=== PATIENT | female | born 1960 | race Two or more races ===

== ENCOUNTER 2017-03-17 10:53 | Emergency (ER) | payer OTHER ==
[~2017-03-17] VITALS: Ht 170.2 cm; Wt 108.9 kg
[~2017-03-17 10:53] MED LIST: BACTRIM DS TABL1 TAB PO; DEXAMETHASONE2 MG PO; INTESTINEX1 CA1 PO; LOTRISONE LOTIO30 ML TP; NORFLEX100MG PO; OMEPRAZOLE20 MG PO; PROTONIX40 MG PO; SEPTRA DS PO; TRAM1TAB98 PO; VASOTEC20 M1 PO; VOLTAREM 50 MG PO
== END 2017-03-17 13:49 | disposition home or self-care (01) ==
LOC: ER 10:53
DX: K29.60 Other gastritis without bleeding (principal); R10.31 Right lower quadrant pain

== ENCOUNTER → 2017-05-29 | Emergency (ER) | payer OTHER ==
[~2017-05-29] VITALS: Ht 170.2 cm; Wt 113.9 kg
== END | disposition home or self-care (01) ==
LOC: ER 14:18
DX: B34.9 Viral infection, unspecified (principal)

== ENCOUNTER 2017-11-08 11:58 | Emergency (ER) | payer OTHER ==
[~2017-11-08] VITALS: Ht 170.2 cm; Wt 112.0 kg
[2017-11-08] MEDS ORDERED: ZANTAC150 M3 (12:10)
[2017-11-08] MEDS ORDERED: LOSARTAN POTASS50 MG (12:10)
== END 2017-11-08 15:16 | disposition home or self-care (01) ==
LOC: ER 11:58
DX: M94.0 Chondrocostal junction syndrome [Tietze] (principal)

== ENCOUNTER 2018-03-10 10:51 | Emergency (ER) | payer OTHER ==
[~2018-03-10] VITALS: Ht 170.2 cm; Wt 116.6 kg
[~2018-03-10 10:51] MED LIST changes: +LOSARTAN POTASS50 MG; +ZANTAC150 M3
[2018-03-10] MEDS ORDERED: LINDANE60 M1 TOP (13:40)
[2018-03-10] MEDS ORDERED: BENADRYL25 MG PO (13:40)
== END 2018-03-10 13:56 | disposition home or self-care (01) ==
LOC: ER 10:51
DX: R21 Rash and other nonspecific skin eruption (principal)

== ENCOUNTER 2018-07-21 12:10 | Emergency (ER) | payer OTHER ==
[~2018-07-21] VITALS: Ht 170.2 cm; Wt 121.6 kg
[~2018-07-21 12:10] MED LIST changes: +BENADRYL25 MG PO; +LINDANE60 M1 TOP
== END 2018-07-21 18:09 | disposition home or self-care (01) ==
LOC: ER 12:10
DX: S83.8X2A Sprain of other specified parts of left knee, initial encounter (principal); M23.8X2 Other internal derangements of left knee; M25.562 Pain in left knee; X50.0XXA Overexertion from strenuous movement or load, initial encounter; Y93.89 Activity, other specified; Y92.89 Other specified places as the place of occurrence of the external cause; Y99.8 Other external cause status

== ENCOUNTER 2018-08-06 09:33 | Outpatient (CLI) | payer OTHER | END 2018-08-06 09:36 | disposition home or self-care (01) | LOC: MRI 09:33 | DX: S83.201A Bucket-handle tear of unspecified meniscus, current injury, left knee, initial encounter (principal) | CPT/HCPCS: 73721 ==

== ENCOUNTER 2019-08-31 11:21 | Outpatient (CLI) | payer OTHER | END 2019-08-31 11:25 | disposition home or self-care (01) | LOC: LAB 11:21 | PROVIDERS: ATTEND Radiology Diagnostic Radiology | DX: N20.0 Calculus of kidney (principal) ==

== ENCOUNTER 2019-09-07 07:29 | Outpatient (CLI) | payer OTHER | END 2019-09-07 08:21 | disposition home or self-care (01) | LOC: TOM 07:29 | PROVIDERS: ATTEND Internal Medicine Gastroenterology | DX: R10.13 Epigastric pain (principal); Z86.010 Personal history of colon polyps; K57.30 Diverticulosis of large intestine without perforation or abscess without bleeding; K21.9 Gastro-esophageal reflux disease without esophagitis; K62.5 Hemorrhage of anus and rectum | CPT/HCPCS: 74177; Q9965 ==

== ENCOUNTER 2019-09-10 09:53 | Emergency (ER) | payer OTHER ==
[~2019-09-10] VITALS: Ht 170.2 cm; Wt 117.0 kg
[2019-09-10] MEDS ORDERED: NAPROXEN SODIU550 MG PO (10:04)
== END 2019-09-10 15:40 | disposition home or self-care (01) ==
LOC: ER 09:53
DX: M94.0 Chondrocostal junction syndrome [Tietze] (principal); R07.89 Other chest pain

== ENCOUNTER 2020-07-31 09:20 | Emergency (ER) | payer OTHER ==
[~2020-07-31] VITALS: Ht 170.2 cm; Wt 117.9 kg
[~2020-07-31 09:20] MED LIST changes: +NAPROXEN SODIU550 MG PO
[2020-07-31] MEDS ORDERED: BUTALB-ASPIRIN1 EACH PO (11:30)
[2020-08-29] MEDS ORDERED: ACID REDUCER20 M1 PO (09:55)
[2020-08-29] MEDS ORDERED: HORIZANT300 MG PO (09:55)
[2020-08-29] MEDS ORDERED: [UNRECOGNIZED DRUG - OTHER] (09:56)
[2020-08-29] MEDS ORDERED: [UNRECOGNIZED DRUG - OTHER] PO (09:56)
== END 2020-07-31 11:49 | disposition home or self-care (01) ==
LOC: ER 09:20
DX: G44.209 Tension-type headache, unspecified, not intractable (principal)

== ENCOUNTER 2020-08-09 11:24 | Outpatient (CLI) | payer OTHER ==
[~2020-08-09 11:24] MED LIST changes: +BUTALB-ASPIRIN1 EACH PO
[2020-08-29] MEDS ORDERED: ACID REDUCER20 M1 PO (09:55)
[2020-08-29] MEDS ORDERED: HORIZANT300 MG PO (09:55)
[2020-08-29] MEDS ORDERED: [UNRECOGNIZED DRUG - OTHER] PO (09:56)
[2020-08-29] MEDS ORDERED: [UNRECOGNIZED DRUG - OTHER] (09:56)
== END 2020-08-09 11:34 | disposition home or self-care (01) ==
LOC: RAD 11:24
PROVIDERS: ATTEND Urology
DX: I11.0 Hypertensive heart disease with heart failure (principal); R07.89 Other chest pain

== ENCOUNTER 2020-09-05 10:26 | Day surgery (SDC) | payer OTHER ==
[~2020-09-05 10:26] MED LIST changes: +ACID REDUCER20 M1 PO; +HORIZANT300 MG PO; +[UNRECOGNIZED DRUG - OTHER]; +[UNRECOGNIZED DRUG - OTHER] PO
== END 2020-09-05 17:50 | disposition home or self-care (01) ==
LOC: CIR.AMB 10:26
PROVIDERS: ATTEND Urology
DX: N39.3 Stress incontinence (female) (male) (principal); Z20.822 Contact with and (suspected) exposure to COVID-19
CPT/HCPCS: 57288; C1771

== ENCOUNTER 2020-11-10 19:22 | Emergency (ER) | payer OTHER ==
[~2020-11-10] VITALS: Ht 170.2 cm; Wt 114.8 kg
[2020-11-10] MEDS ORDERED: ATORVASTATIN CA20 MG PO (20:00)
[2020-11-10] MEDS ORDERED: CYCLOBENZAPRINE10 MG PO (20:00)
[2020-11-10] MEDS ORDERED: METOPROLOL SUCC50 MG PO (20:00)
[2020-11-10] MEDS ORDERED: LOSARTAN POTAS100 MG PO (20:01)
[2020-11-10] MEDS ORDERED: IBUPROFEN800 MG PO (20:01)
== END 2020-11-11 | disposition home or self-care (01) ==
LOC: ER 19:22
DX: G50.0 Trigeminal neuralgia (principal); F06.4 Anxiety disorder due to known physiological condition

== ENCOUNTER 2020-12-05 16:59 | Emergency (ER) | payer OTHER ==
[~2020-12-05] VITALS: Ht 170.2 cm; Wt 116.6 kg
[~2020-12-05 16:59] MED LIST changes: +ATORVASTATIN CA20 MG PO; +CYCLOBENZAPRINE10 MG PO; +IBUPROFEN800 MG PO; +LOSARTAN POTAS100 MG PO; +METOPROLOL SUCC50 MG PO
[2020-12-05] MEDS ORDERED: KETO10TA2 PO (21:09)
== END 2020-12-06 | disposition home or self-care (01) ==
LOC: ER 16:59
DX: M21.611 Bunion of right foot (principal)

== ENCOUNTER 2021-03-12 10:18 | Emergency (ER) | payer OTHER ==
[~2021-03-12] VITALS: Ht 170.2 cm; Wt 116.6 kg
[~2021-03-12 10:18] MED LIST changes: +KETO10TA2 PO
== END 2021-03-12 18:28 | disposition home or self-care (01) ==
LOC: ER 10:18
DX: U07.1 COVID-19 (principal); R11.11 Vomiting without nausea; H92.02 Otalgia, left ear; R51.9 Headache, unspecified

== ENCOUNTER → 2021-03-16 | Emergency (ER) | payer OTHER | END | disposition left against medical advice (07) | LOC: ER 11:58 | DX: Z53.20 Procedure and treatment not carried out because of patient's decision for unspecified reasons (principal) ==

== ENCOUNTER 2021-09-11 12:22 | Emergency (ER) | payer OTHER ==
[~2021-09-11] VITALS: Ht 170.2 cm; Wt 111.1 kg
[2021-09-11] MEDS ORDERED: ACID REDUCER20 M1 PO (12:40)
[2021-09-11] MEDS ORDERED: CELEBREX200MG PO (18:15)
== END 2021-09-11 18:28 | disposition home or self-care (01) ==
LOC: ER 12:22
DX: R10.2 Pelvic and perineal pain (principal); M25.562 Pain in left knee; K57.30 Diverticulosis of large intestine without perforation or abscess without bleeding; N28.1 Cyst of kidney, acquired; R16.0 Hepatomegaly, not elsewhere classified; I10 Essential (primary) hypertension

== ENCOUNTER 2021-12-16 09:37 | Emergency (ER) | payer OTHER ==
[~2021-12-16] VITALS: Ht 170.2 cm; Wt 110.2 kg
[~2021-12-16 09:37] MED LIST changes: +CELEBREX200MG PO
[2021-12-16] MEDS ORDERED: GRALISE600 MG PO (09:46)
== END 2021-12-16 12:43 | disposition home or self-care (01) ==
LOC: ER 09:37
DX: M54.2 Cervicalgia (principal); S89.92XA Unspecified injury of left lower leg, initial encounter; W22.03XA Walked into furniture, initial encounter; Y93.9 Activity, unspecified; Y92.013 Bedroom of single-family (private) house as the place of occurrence of the external cause; S49.92XA Unspecified injury of left shoulder and upper arm, initial encounter; I10 Essential (primary) hypertension; Z96.652 Presence of left artificial knee joint

== ENCOUNTER 2022-01-04 10:18 | Emergency (ER) | payer OTHER ==
[~2022-01-04] VITALS: Ht 170.2 cm; Wt 109.8 kg
[~2022-01-04 10:18] MED LIST changes: +GRALISE600 MG PO
[2022-01-04] MEDS ORDERED: COZAAR50 MG PO (10:44)
== END 2022-01-04 11:59 ==
LOC: ER 10:18
DX: B34.9 Viral infection, unspecified (principal); R05.9 Cough, unspecified

== ENCOUNTER → 2022-02-16 | Emergency (ER) | payer OTHER ==
[~2022-02-16] MED LIST changes: +COZAAR50 MG PO
== END | disposition left against medical advice (07) ==
LOC: ER 13:32
DX: Z53.21 Procedure and treatment not carried out due to patient leaving prior to being seen by health care provider (principal)

== ENCOUNTER 2022-07-13 17:07 | Emergency (ER) | payer OTHER ==
[~2022-07-13] VITALS: Ht 167.6 cm; Wt 90.7 kg
== END 2022-07-13 17:52 | disposition home or self-care (01) ==
LOC: ER 17:07
DX: J06.9 Acute upper respiratory infection, unspecified (principal)

== ENCOUNTER 2022-10-30 11:04 | Emergency (ER) | payer OTHER ==
[~2022-10-30] VITALS: Ht 170.2 cm; Wt 116.6 kg
== END 2022-10-30 12:47 | disposition home or self-care (01) ==
LOC: ER 11:04
DX: J06.9 Acute upper respiratory infection, unspecified (principal)
CPT/HCPCS: 96372; 99284; J0696

== ENCOUNTER 2022-12-03 09:14 | Outpatient (CLI) | payer OTHER ==
[2022-12-03 10:28] LABS: HEMATOCRIT 36.5 % (36.0-45.00); HEMOGLOBIN 12.3 g/dL (12.0-15.00); MEAN CELL VOLUME 86.6 fL (80.00-100.00); MEAN CORPUSCULAR HEMOGLOBIN 29.1 pg (27.00-32.0); MEAN CORPUSCULAR HGB CONC 33.6 g/dl (32.0-36.0); PLATELET COUNT 249 K/uL (150-450); RED BLOOD COUNT 4.21 M/uL (4.00-6.00); RED CELL DISTRIBUTION WIDTH 14.6 % (11.5-14.5)
[2022-12-03 11:42] LABS: ALBUMIN 3.6 gm/dL (3.4-5.0); BILIRUBIN TOTAL 0.57 mg/dL (0.3-1.2); CALCIUM 8.8 mg/dL (8.5-10.1); CREATININE SERUM 0.83 mg/dL (0.55-1.02); GFR 69.21; GLOBULINA 3.6 G/DL (2.4-3.5); POTASSIUM 3.94 mEq/L (3.5-5.1); TOTAL PROTEIN 7.2 gm/dL (6.4-8.2)
[2022-12-03 12:31] LABS: VITAMIN D3 25 HYDROXY 33.72 ng/ml (30-120)
== END 2022-12-03 09:15 | disposition home or self-care (01) ==
LOC: LAB 09:14
PROVIDERS: ATTEND Internal Medicine Cardiovascular Disease
DX: I10 Essential (primary) hypertension (principal); E11.9 Type 2 diabetes mellitus without complications; E03.9 Hypothyroidism, unspecified; E78.2 Mixed hyperlipidemia; Z12.11 Encounter for screening for malignant neoplasm of colon; E55.9 Vitamin D deficiency, unspecified

== ENCOUNTER 2023-06-24 09:22 | Emergency (ER) | payer OTHER ==
[~2023-06-24] VITALS: Ht 167.6 cm; Wt 111.6 kg
[2023-06-24] MEDS ORDERED: PANTOPRAZOLE SODIUM 40 MG/VIAL VIAL IV PRN (11:30)
[2023-06-24] MEDS ORDERED: ACETAMINOPHEN 500 MG GEL..CAP PO ONE (11:30)
[2023-06-24] MEDS ORDERED: FAMOtidine 10 MG/ML (4ML VIAL) IV ONE (12:00)
[2023-06-24 12:43] LABS: PH,URINE 6.5 (5.0-8.0); URINE APPEARANCE Clear; URINE BILIRRUBIN Negative (NEGATIVE); URINE COLOR Yellow; URINE GLUCOSE Negative (NEGATIVE); URINE LEUKOCYTE Negative; URINE NITRATE Negative; URINE PROTEIN Negative (NEGATIVE); URINE UROBILINOGEN 0.2 E.U./dl
[2023-06-24 12:47] LABS: URINE BACTERIA 74.3 uL (0.0-1933); URINE EPITHELIAL CELLS 5.2 uL (0.0-38.8); URINE RBC 11.4 uL (0.0-20.8); URINE WBC 5.8 uL (0.0-23.2)
[2023-06-24 12:50] LABS: URINE BLOOD TRACE
[2023-06-24 12:59] LABS: HEMATOCRIT 37.4 % (36.0-45.00); HEMOGLOBIN 12.4 g/dL (12.0-15.00); MEAN CELL VOLUME 85.9 fL (80.00-100.00); MEAN CORPUSCULAR HEMOGLOBIN 28.5 pg (27.00-32.0); MEAN CORPUSCULAR HGB CONC 33.2 g/dl (32.0-36.0); PLATELET COUNT 251 K/uL (150-450); RED BLOOD COUNT 4.36 M/uL (4.00-6.00); RED CELL DISTRIBUTION WIDTH 14.4 % (11.5-14.5)
[2023-06-24] MEDS ORDERED: 0.9 % SODIUM CHLORIDE 500 ML IV ONE (13:30)
[2023-06-24 13:41] LABS: ALBUMIN 3.4 gm/dL (3.4-5.0); BILIRUBIN TOTAL 0.39 mg/dL (0.3-1.2); CALCIUM 9.3 mg/dL (8.5-10.1); CREATININE SERUM 0.99 mg/dL (0.55-1.02); GFR 56.47; GLOBULINA 4.6 G/DL (2.4-3.5); POTASSIUM 4.18 mEq/L (3.5-5.1)
[2023-06-24] MEDS ORDERED: PAXLOVID 300-11 EAC1 PO (14:19)
== END 2023-06-24 14:41 | disposition home or self-care (01) ==
LOC: ER 09:22
PROVIDERS: General Practice
DX: U07.1 COVID-19 (principal); R51.9 Headache, unspecified; R10.9 Unspecified abdominal pain; R53.81 Other malaise; R50.9 Fever, unspecified; J45.909 Unspecified asthma, uncomplicated; I10 Essential (primary) hypertension; E11.9 Type 2 diabetes mellitus without complications
CPT/HCPCS: 36415; 96365; 99282; J3490; J7042

== ENCOUNTER 2023-10-06 10:50 | Emergency (ER) | payer OTHER ==
[~2023-10-06] VITALS: Ht 170.2 cm; Wt 90.7 kg
[~2023-10-06 10:50] MED LIST changes: +PAXLOVID 300-11 EAC1 PO
[2023-10-06] MEDS ORDERED: CORTISPORIN EAR10 M1 OPHT (14:21)
== END 2023-10-06 14:31 | disposition home or self-care (01) ==
LOC: ER 10:51
DX: H61.21 Impacted cerumen, right ear (principal); I10 Essential (primary) hypertension

== ENCOUNTER 2023-10-29 11:34 | Outpatient (CLI) | payer OTHER ==
[~2023-10-29 11:34] MED LIST changes: +CORTISPORIN EAR10 M1 OPHT
== END 2023-10-29 11:41 | disposition home or self-care (01) ==
LOC: SONOGRAMA 11:34
PROVIDERS: ATTEND Internal Medicine Cardiovascular Disease
DX: M12.9 Arthropathy, unspecified (principal); M10.9 Gout, unspecified

== ENCOUNTER 2023-12-22 05:35 | Day surgery (SDC) | payer OTHER ==
[2023-12-15 11:36] LABS: PH,URINE 5.5 (5.0-8.0); URINE APPEARANCE Clear; URINE BILIRRUBIN Negative (NEGATIVE); URINE BLOOD Trace; URINE COLOR Yellow; URINE GLUCOSE Negative (NEGATIVE); URINE KETONE Negative (NEGATIVE); URINE LEUKOCYTE Small; URINE NITRATE Positive; URINE PROTEIN Negative (NEGATIVE); URINE UROBILINOGEN 0.2 E.U./dl
[2023-12-15 11:37] LABS: URINE EPITHELIAL CELLS 15.1 uL (0.0-38.8); URINE RBC 7.9 uL (0.0-20.8); URINE WBC 92.7 uL (0.0-23.2)
[2023-12-15 11:41] LABS: HEMATOCRIT 36.8 % (36.0-45.00); HEMOGLOBIN 12.1 g/dL (12.0-15.00); MEAN CELL VOLUME 87.6 fL (80.00-100.00); MEAN CORPUSCULAR HEMOGLOBIN 28.8 pg (27.00-32.0); MEAN CORPUSCULAR HGB CONC 32.8 g/dl (32.0-36.0); PLATELET COUNT 194 K/uL (150-450); RED BLOOD COUNT 4.21 M/uL (4.00-6.00); RED CELL DISTRIBUTION WIDTH 14.7 % (11.5-14.5)
[2023-12-15 12:02] LABS: INR 1.02; PARTIAL THROMBOPLASTIN TIME 25.9 SECONDS (22.0-34.0); PROTHROMBIN TIME 11.1 SECONDS (9.0-11.5)
[2023-12-15 12:32] LABS: URINE BACTERIA > 9821.5 uL (0.0-1933); URINE CAST 0.45 uL (0.0-1.40)
[2023-12-15 12:35] LABS: ALBUMIN 3.8 gm/dL (3.4-5.0); BILIRUBIN TOTAL 0.6 mg/dL (0.3-1.2); CALCIUM 9.3 mg/dL (8.5-10.1); CREATININE SERUM 0.74 mg/dL (0.55-1.02); GFR 78.76; GLOBULINA 3.6 G/DL (2.4-3.5); POTASSIUM 4.21 mEq/L (3.5-5.1); TOTAL PROTEIN 7.4 gm/dL (6.4-8.2)
[~2023-12-22 05:35] MED LIST changes: +CATAFLAN; +NEUROTIN
[2023-12-22] MEDS ORDERED: BUPIVACAINE HCL 30 ML VIAL IJ ONE (08:30)
[2023-12-22] MEDS ORDERED: ISOPROPYL ALCOHOL 30 ML OUNCE TOP ONE (08:30)
[2023-12-22] MEDS ORDERED: CEFAZOLIN SODIUM 1,000 MG VIAL IV ONE (08:30)
== END 2023-12-22 12:10 | disposition home or self-care (01) ==
LOC: CIR.AMB 05:35
PROVIDERS: ATTEND Orthopaedic Surgery Hand Surgery
DX: M65.321 Trigger finger, right index finger (principal); M65.342 Trigger finger, left ring finger; M65.351 Trigger finger, right little finger; I10 Essential (primary) hypertension